=== PATIENT | female | born 1975 | race African-American/Black ===

== ENCOUNTER 2022-05-19 14:07 | Inpatient (IN) | payer MEDICAID, OTHER ==
[~2022-05-19] VITALS: Ht 185.4 cm; Wt 102.1 kg
[2022-05-19] MEDS ORDERED: MAGNESIUM/ALUMINUM HYDROXIDE/SIMETHICONE 30ML UDC PO STA (16:21)
[2022-05-19] MEDS ORDERED: DICYCLOMINE 10 MG/5 ML ORAL SYR PO STA (16:21)
[2022-05-19] MEDS ORDERED: VISCOUS LIDOCAINE 2% 15 ML UDC PO STA (16:21)
[2022-05-19] MEDS ORDERED: SODIUM CHLORIDE 0.9% 1,000 ML IV ONE (17:15)
[2022-05-19 17:25] LABS: CLARITY URINE CLOUDY (CLEAR); COLOR URINE YELLOW (YELLOW); KETONES URINE NEGATIVE (NEGATIVE); LEUKOCYTE ESTERASE URINE 3+ (NEGATIVE); NITRITE URINE NEGATIVE (NEGATIVE); OCCULT BLOOD URINE 2+ (NEGATIVE); PROTEIN URINE 1+ (NEGATIVE); UROBILINOGEN URINE 0.2 E.U./dL (0.2-1.0)
[2022-05-19 17:29] LABS: BASOPHILS % 0.5 % (0.0-2.0); EOSINOPHILS % 0.9 % (0.0-5.0); HEMOGLOBIN. 11.7 g/dL (12.0-16.0); MEAN CORPUSCULAR HEMOGLOBIN 30.4 pg (28.0-32.0); MEAN CORPUSCULAR VOLUME 93.4 fL (81.0-99.0); MEAN PLATELET VOLUME 7.9 fl (7.4-10.4); MONOCYTES % 11.3 % (2.0-8.0); NEUTROPHILS % 56.3 % (40.0-76.0); PLATELET 186 x1000/uL (130-400); RED BLOOD CELL COUNT 3.85 mill/uL (4.2-5.4); RED CELL DISTRIBUTION WIDTH 15.1 % (11.6-14.6)
[2022-05-19 17:37] LABS: CHLORIDE 108 mEq/L (98-107)
[2022-05-19 17:43] LABS: *AMPHETAMINES SCREEN URINE NEGATIVE (NEGATIVE); *BARBITURATES SCREEN URINE NEGATIVE (NEGATIVE); *BENZODIAZEPINES SCREEN URINE NEGATIVE (NEGATIVE); *COCAINE SCREEN URINE NEGATIVE (NEGATIVE); CANNABINOID URINE SCREEN PRESUMTIVE POSITIVE (NEGATIVE); METHADONE URINE SCREEN NEGATIVE (NEGATIVE); OPIATES URINE SCREEN NEGATIVE (NEGATIVE); PHENCYCLIDINE URINE SCREEN NEGATIVE (NEGATIVE)
[2022-05-19 17:48] LABS: ETHANOL BLOOD < 10 mg/dL
[2022-05-19 18:05] LABS: HCG SCREEN NEGATIVE
[2022-05-19] MEDS ORDERED: VANCOMYCIN 1G PREMIX 200 ML IV SCH (20:30)
[2022-05-19] MEDS ORDERED: PIPERACILLIN/TAZ 3.375G PREMIX 50 ML IV ONE (20:30)
[2022-05-19] MEDS ORDERED: GADOTERATE MEGLUMINE 5 MMOL/10 ML VIAL IV ONE (21:47)
[2022-05-19] MEDS ORDERED: ONDANSETRON HCL 4MG/2ML INJ IV STA (22:02)
[2022-05-19] MEDS ORDERED: MORPHINE SULFATE 4 MG/ML CPJ (NOT FOR IM USE) IV STA (22:02)
[2022-05-20 04:00] VITALS: BP 158/98
[2022-05-20] MEDS ORDERED: ACETAMINOPHEN 650MG/20.3ML UDC PO PRN (05:30)
[2022-05-20] MEDS ORDERED: ONDANSETRON HCL 4MG/2ML INJ IV PRN (05:30)
[2022-05-20 08:00] VITALS: BP 142/92
[2022-05-20] MEDS: HYDROCODONE/ACETAMINOPHEN 10/325MG TABLET PO PRN ×3 (08:33→23:34)
[2022-05-20] MEDS: AMLODIPINE 10MG TABLET PO SCH (08:34)
[2022-05-20] MEDS ORDERED: PANTOPRAZOLE 40MG DR TABLET PO SCH (09:00)
[2022-05-20] MEDS ORDERED: ENOXAPARIN 40MG/0.4ML SYR SUBCUT SCH (09:00)
[2022-05-20] MEDS ORDERED: POTASSIUM CHLORIDE 20MEQ TABLET SR PO NR (10:15)
[2022-05-20] MEDS ORDERED: CEFTRIAXONE 1 G PREMIX 50 ML IV SCH (10:15)
[2022-05-20] MEDS ORDERED: NALOXONE HCL 0.4MG/ML VIAL IV PRN (10:30)
[2022-05-20 12:00] VITALS: BP 134/84
[2022-05-20 13:13] LABS: INR 1.3; PROTHROMBIN TIME 14.1 sec (9.6-11.0)
[2022-05-20] MEDS: CEFTRIAXONE 1,000 MG in DEXTROSE 5% WATER 50 ML IV SCH (15:48)
[2022-05-20 16:00] VITALS: BP 128/89
[2022-05-20] MEDS: DEXT 5%/LACTATED RINGERS 1,000 ML IV SCH (19:00)
[2022-05-20 20:00] VITALS: BP 147/93
[2022-05-20] MEDS: METRONIDAZOLE 500 MG PREMIX 100 ML IV SCH (21:37)
[2022-05-21] VITALS (29 sets, daily range): BP systolic 122–165; BP diastolic 51–97
[2022-05-21] MEDS: DEXT 5%/LACTATED RINGERS 1,000 ML IV SCH ×3 (05:23→21:20)
[2022-05-21] MEDS: METRONIDAZOLE 500 MG PREMIX 100 ML IV SCH ×2 (05:23→22:00)
[2022-05-21 08:01] LABS: HEMATOCRIT. 32.5 % (36.0-48.0); HEMOGLOBIN. 10.7 g/dL (12.0-16.0); MEAN CORPUSCULAR HEMOGLOBIN 29.8 pg (28.0-32.0); MEAN CORPUSCULAR VOLUME 90.4 fL (81.0-99.0); MEAN PLATELET VOLUME 8.4 fl (7.4-10.4); PLATELET 139 x1000/uL (130-400)
[2022-05-21] MEDS ORDERED: PROPOFOL 200MG/20ML VIAL IV ONE (09:42)
[2022-05-21] MEDS ORDERED: CEFAZOLIN SODIUM 1000MG/VIAL ONE (09:42)
[2022-05-21] MEDS ORDERED: MIDAZOLAM HCL 2 MG/2 ML VIAL ONE (09:44)
[2022-05-21] MEDS ORDERED: LIDOCAINE HCL 1%/EPI 1:200,000 30 ML VIAL ONE (09:45)
[2022-05-21] MEDS ORDERED: THROMBIN (BOVINE) 5000 UNITS/VIAL TOP ONE (09:45)
[2022-05-21] MEDS ORDERED: GENTAMICIN SULF 40MG/ML 2ML VIAL ONE (09:45)
[2022-05-21] MEDS ORDERED: FENTANYL CITRATE/PF 50MCG/ML 2ML VIAL ONE (09:47)
[2022-05-21 10:22] LABS: CHLORIDE 115 mEq/L (98-107)
[2022-05-21] MEDS ORDERED: KETOROLAC 30MG/ML VIAL ONE ×3 (12:09→12:24)
[2022-05-21] MEDS ORDERED: FUROSEMIDE 40MG/4ML VIAL ONE (12:39)
[2022-05-21] MEDS ORDERED: FENTANYL CITRATE/PF 50MCG/ML 2ML VIAL IV PRN (13:30)
[2022-05-21] MEDS: HYDROMORPHONE HCL/PF 2MG/ML CPJ IV PRN ×3 (13:48→15:10)
[2022-05-21] MEDS ORDERED: CEFAZOLIN SODIUM 1000MG/VIAL IV SCH (14:00)
[2022-05-21] MEDS: NICARDIPINE 100 MG in SODIUM CHLORIDE 0.9% 60 ML IV PRN ×2 (14:31→21:54)
[2022-05-21] MEDS: MORPHINE SULFATE 4 MG/ML CPJ (NOT FOR IM USE) IV PRN ×4 (16:10→23:49)
[2022-05-21 16:21] LABS: PLATELET ESTIMATE NORMAL
[2022-05-21] MEDS: DIPHENHYDRAMINE 25MG CAPSULE PO PRN (16:58)
[2022-05-21] MEDS: DEXAMETHASONE 4MG/ML 1ML VIAL IV SCH ×2 (17:13→23:49)
[2022-05-21] MEDS: AMLODIPINE 10MG TABLET PO SCH (18:09)
[2022-05-21] MEDS ORDERED: MORPHINE SULFATE 2 MG/ML CPJ (NOT FOR IM USE) IV NR (19:00)
[2022-05-21] MEDS: CEFAZOLIN 1000MG PREMIX 50 ML IV SCH (21:19)
[2022-05-22] VITALS (75 sets, daily range): BP systolic 58–163; BP diastolic 48–90
[2022-05-22] MEDS: DEXT 5%/LACTATED RINGERS 1,000 ML IV SCH ×2 (01:20→08:55)
[2022-05-22 04:18] LABS: BASOPHILS % 0.1 % (0.0-2.0); HEMATOCRIT. 28.5 % (36.0-48.0); HEMOGLOBIN. 9.4 g/dL (12.0-16.0); LYMPHOCYTES % 27.5 % (20.0-50.0); MEAN CORPUSCULAR HEMOGLOBIN 29.9 pg (28.0-32.0); MEAN CORPUSCULAR VOLUME 90.4 fL (81.0-99.0); MEAN PLATELET VOLUME 8.9 fl (7.4-10.4); MONOCYTES % 2.5 % (2.0-8.0); NEUTROPHILS % 69.9 % (40.0-76.0); PLATELET 177 x1000/uL (130-400); RED BLOOD CELL COUNT 3.15 mill/uL (4.2-5.4); RED CELL DISTRIBUTION WIDTH 14.7 % (11.6-14.6)
[2022-05-22] MEDS: MORPHINE SULFATE 4 MG/ML CPJ (NOT FOR IM USE) IV PRN ×7 (04:21→20:25)
[2022-05-22 04:27] LABS: CHLORIDE 110 mEq/L (98-107)
[2022-05-22] MEDS: CEFAZOLIN 1000MG PREMIX 50 ML IV SCH ×2 (05:01→14:08)
[2022-05-22] MEDS: NICARDIPINE 100 MG in SODIUM CHLORIDE 0.9% 60 ML IV PRN (05:01)
[2022-05-22] MEDS: DEXAMETHASONE 4MG/ML 1ML VIAL IV SCH ×3 (05:01→17:11)
[2022-05-22] MEDS: METRONIDAZOLE 500 MG PREMIX 100 ML IV SCH ×3 (05:53→23:01)
[2022-05-22] MEDS: DIPHENHYDRAMINE 25MG CAPSULE PO PRN (07:54)
[2022-05-22] MEDS: AMLODIPINE 10MG TABLET PO SCH (08:05)
[2022-05-22] MEDS: FAMOTIDINE 20MG/2ML VIAL IV SCH (08:05)
[2022-05-22] MEDS ORDERED: POTASSIUM CHLORIDE 20MEQ TABLET SR PO NR (08:15)
[2022-05-22] MEDS: CEFTRIAXONE 1,000 MG in DEXTROSE 5% WATER 50 ML IV SCH (12:32)
[2022-05-22] MEDS: HYDROCODONE/ACETAMINOPHEN 10/325MG TABLET PO PRN (23:19)
[2022-05-23] VITALS (7 sets, daily range): BP systolic 128–142; BP diastolic 68–90
[2022-05-23] MEDS: CEFAZOLIN 1000MG PREMIX 50 ML IV SCH ×4 (00:30→21:44)
[2022-05-23] MEDS: MORPHINE SULFATE 4 MG/ML CPJ (NOT FOR IM USE) IV PRN ×4 (05:28→16:31)
[2022-05-23] MEDS: METRONIDAZOLE 500 MG PREMIX 100 ML IV SCH ×3 (06:49→21:36)
[2022-05-23] MEDS: FAMOTIDINE 20MG/2ML VIAL IV SCH (08:27)
[2022-05-23] MEDS: AMLODIPINE 10MG TABLET PO SCH (08:27)
[2022-05-23] MEDS: HYDROCODONE/ACETAMINOPHEN 10/325MG TABLET PO PRN ×3 (10:26→21:47)
[2022-05-23] MEDS: CEFTRIAXONE 1,000 MG in DEXTROSE 5% WATER 50 ML IV SCH (12:32)
[2022-05-24] VITALS: BP 127/74
[2022-05-24] MEDS: MORPHINE SULFATE 4 MG/ML CPJ (NOT FOR IM USE) IV PRN ×2 (02:41→08:47)
[2022-05-24 04:00] VITALS: BP 134/74
[2022-05-24] MEDS: METRONIDAZOLE 500 MG PREMIX 100 ML IV SCH (05:39)
[2022-05-24] MEDS: HYDROCODONE/ACETAMINOPHEN 10/325MG TABLET PO PRN ×4 (06:34→23:27)
[2022-05-24 08:00] VITALS: BP 138/88
[2022-05-24] MEDS: FAMOTIDINE 20MG TABLET PO SCH ×2 (08:45→21:06)
[2022-05-24] MEDS: AMLODIPINE 10MG TABLET PO SCH (08:45)
[2022-05-24 12:00] VITALS: BP 125/77
[2022-05-24] MEDS: CEFTRIAXONE 1,000 MG in DEXTROSE 5% WATER 50 ML IV SCH (12:21)
[2022-05-24] MEDS: METRONIDAZOLE 500MG TABLET PO SCH ×2 (17:52→21:06)
[2022-05-24 20:00] VITALS: BP 127/86
[2022-05-24 23:31] VITALS: BP 136/89
[2022-05-25 04:00] VITALS: BP 127/88
[2022-05-25] MEDS: METRONIDAZOLE 500MG TABLET PO SCH ×3 (05:43→21:07)
[2022-05-25] MEDS: MORPHINE SULFATE 4 MG/ML CPJ (NOT FOR IM USE) IV PRN (05:50)
[2022-05-25] MEDS ORDERED: LIDOCAINE HCL/PF 1% 10 MG/ML 5ML VIAL ONE (07:56)
[2022-05-25 08:00] VITALS: BP 127/73
[2022-05-25] MEDS: AMLODIPINE 10MG TABLET PO SCH (09:25)
[2022-05-25] MEDS: FAMOTIDINE 20MG TABLET PO SCH ×2 (09:25→21:06)
[2022-05-25 12:00] VITALS: BP 122/88
[2022-05-25] MEDS: HYDROCODONE/ACETAMINOPHEN 5/325MG TABLET PO PRN ×2 (12:13→21:06)
[2022-05-25] MEDS: CEFTRIAXONE 1,000 MG in DEXTROSE 5% WATER 50 ML IV SCH (12:14)
[2022-05-25] MEDS ORDERED: NALOXONE HCL 0.4MG/ML VIAL IV PRN (15:45)
[2022-05-25 16:00] VITALS: BP 125/83
[2022-05-25 20:00] VITALS: BP_SYST 134; BP_SYST 152; BP_DIAS 78; BP_DIAS 90
[2022-05-25 22:53] VITALS: BP 134/78
[2022-05-25] MEDS ORDERED: CEFTRIAXONE 2 G PREMIX 50 ML IV SCH (23:15)
[2022-05-26] VITALS (8 sets, daily range): BP systolic 78–140; BP diastolic 70–85
[2022-05-26] MEDS: CEFTRIAXONE 2 G in DEXTROSE 5% WATER 50 ML IV SCH (04:09)
[2022-05-26] MEDS: HYDROCODONE/ACETAMINOPHEN 5/325MG TABLET PO PRN ×5 (04:16→22:03)
[2022-05-26] MEDS: METRONIDAZOLE 500MG TABLET PO SCH ×3 (05:28→21:14)
[2022-05-26] MEDS ORDERED: HYDR-4001 MT (08:12)
[2022-05-26] MEDS: FAMOTIDINE 20MG TABLET PO SCH ×2 (08:36→21:14)
[2022-05-26] MEDS: AMLODIPINE 10MG TABLET PO SCH (08:36)
[2022-05-26 11:25] LABS: CHLORIDE 108 mEq/L (98-107)
[2022-05-26 15:26] LABS: BASOPHILS % 0.3 % (0.0-2.0); EOSINOPHILS % 1.6 % (0.0-5.0); LYMPHOCYTES % 29.2 % (20.0-50.0); MEAN CORPUSCULAR HEMOGLOBIN 29.4 pg (28.0-32.0); MEAN CORPUSCULAR VOLUME 98.9 fL (81.0-99.0); MEAN PLATELET VOLUME 7.2 fl (7.4-10.4); MONOCYTES % 6.4 % (2.0-8.0); NEUTROPHILS % 62.5 % (40.0-76.0); PLATELET 269 x1000/uL (130-400); RED BLOOD CELL COUNT 2.03 mill/uL (4.2-5.4); RED CELL DISTRIBUTION WIDTH 15.8 % (11.6-14.6)
[2022-05-26 15:50] LABS: HEMATOCRIT. 20.1 % (36.0-48.0)
[2022-05-26] MEDS: DIPHENHYDRAMINE 25MG CAPSULE PO PRN (21:14)
[2022-05-27] VITALS (14 sets, daily range): BP systolic 125–140; BP diastolic 74–98
[2022-05-27] MEDS: CEFTRIAXONE 2 G in DEXTROSE 5% WATER 50 ML IV SCH (01:16)
[2022-05-27] MEDS: HYDROCODONE/ACETAMINOPHEN 5/325MG TABLET PO PRN ×4 (03:07→17:46)
[2022-05-27] MEDS: METRONIDAZOLE 500MG TABLET PO SCH ×3 (05:43→21:12)
[2022-05-27] MEDS: AMLODIPINE 10MG TABLET PO SCH (08:40)
[2022-05-27] MEDS: FAMOTIDINE 20MG TABLET PO SCH (08:40)
[2022-05-27 12:25] LABS: BASOPHILS % 0.3 % (0.0-2.0); EOSINOPHILS % 1.6 % (0.0-5.0); HEMATOCRIT. 21.4 % (36.0-48.0); HEMOGLOBIN. 7.2 g/dL (12.0-16.0); LYMPHOCYTES % 24.1 % (20.0-50.0); MEAN CORPUSCULAR HEMOGLOBIN 30.8 pg (28.0-32.0); MEAN CORPUSCULAR VOLUME 91.8 fL (81.0-99.0); MEAN PLATELET VOLUME 7.5 fl (7.4-10.4); MONOCYTES % 6.8 % (2.0-8.0); NEUTROPHILS % 67.2 % (40.0-76.0); PLATELET 260 x1000/uL (130-400); RED BLOOD CELL COUNT 2.34 mill/uL (4.2-5.4); RED CELL DISTRIBUTION WIDTH 14.9 % (11.6-14.6)
[2022-05-27 12:47] LABS: CHLORIDE 105 mEq/L (98-107)
[2022-05-27] MEDS: DIPHENHYDRAMINE 25MG CAPSULE PO PRN ×2 (13:02→22:19)
[2022-05-27] MEDS ORDERED: PANTOPRAZOLE SODIUM 40 MG/VIAL IV SCH (17:00)
[2022-05-27] MEDS: PANTOPRAZOLE SODIUM 40 MG/VIAL IV SCH (21:12)
[2022-05-27] MEDS: OCTREOTIDE 1,000 MCG in SODIUM CHLORIDE 0.9% 98 ML IV SCH (22:21)
[2022-05-28] MEDS: HYDROCODONE/ACETAMINOPHEN 5/325MG TABLET PO PRN ×5 (00:19→23:10)
[2022-05-28] MEDS: CEFTRIAXONE 2 G in DEXTROSE 5% WATER 50 ML IV SCH ×2 (00:20→23:30)
[2022-05-28 04:00] VITALS: BP 131/79
[2022-05-28 04:26] LABS: CHLORIDE 105 mEq/L (98-107)
[2022-05-28 04:32] LABS: INR 1.2; PROTHROMBIN TIME 12.4 sec (9.6-11.0)
[2022-05-28 04:48] LABS: BASOPHILS % 0.4 % (0.0-2.0); EOSINOPHILS % 1.4 % (0.0-5.0); HEMATOCRIT. 23.2 % (36.0-48.0); HEMOGLOBIN. 7.7 g/dL (12.0-16.0); LYMPHOCYTES % 26.7 % (20.0-50.0); MEAN CORPUSCULAR HEMOGLOBIN 30.1 pg (28.0-32.0); MEAN CORPUSCULAR VOLUME 90.5 fL (81.0-99.0); MEAN PLATELET VOLUME 7.7 fl (7.4-10.4); MONOCYTES % 8.8 % (2.0-8.0); NEUTROPHILS % 62.7 % (40.0-76.0); PLATELET 275 x1000/uL (130-400); RED BLOOD CELL COUNT 2.56 mill/uL (4.2-5.4); RED CELL DISTRIBUTION WIDTH 15.9 % (11.6-14.6)
[2022-05-28] MEDS: DIPHENHYDRAMINE 25MG CAPSULE PO PRN ×3 (05:13→18:58)
[2022-05-28] MEDS: METRONIDAZOLE 500MG TABLET PO SCH ×3 (07:14→22:05)
[2022-05-28] MEDS: AMLODIPINE 10MG TABLET PO SCH (07:49)
[2022-05-28] MEDS: PANTOPRAZOLE SODIUM 40 MG/VIAL IV SCH ×2 (07:50→22:08)
[2022-05-28 08:00] VITALS: BP 131/88
[2022-05-28] MEDS ORDERED: MIDAZOLAM HCL 2 MG/2 ML VIAL ONE ×2 (11:27)
[2022-05-28] MEDS ORDERED: LIDOCAINE HCL 1% 10 MG/ML 10ML VIAL ONE (11:27)
[2022-05-28] MEDS ORDERED: PROPOFOL 200MG/20ML VIAL IV ONE ×2 (11:27→12:05)
[2022-05-28] MEDS ORDERED: EPHEDRINE SULFATE 50MG/ML VIAL ONE (11:28)
[2022-05-28] MEDS: OCTREOTIDE 1,000 MCG in SODIUM CHLORIDE 0.9% 98 ML IV SCH (15:04)
[2022-05-28 16:00] VITALS: BP 154/90
[2022-05-28] MEDS: SUCRALFATE 1 G/10 ML UDC PO SCH ×2 (17:00→22:05)
[2022-05-28 20:00] VITALS: BP 134/89
[2022-05-29] VITALS: BP 142/91
[2022-05-29] MEDS: DIPHENHYDRAMINE 25MG CAPSULE PO PRN ×3 (01:08→15:01)
[2022-05-29] MEDS: HYDROCODONE/ACETAMINOPHEN 5/325MG TABLET PO PRN ×5 (03:21→21:01)
[2022-05-29 04:00] VITALS: BP 140/90
[2022-05-29] MEDS: METRONIDAZOLE 500MG TABLET PO SCH ×3 (06:10→20:54)
[2022-05-29 08:00] VITALS: BP 143/85
[2022-05-29] MEDS: AMLODIPINE 10MG TABLET PO SCH (08:34)
[2022-05-29] MEDS: SUCRALFATE 1 G/10 ML UDC PO SCH ×4 (08:34→20:55)
[2022-05-29] MEDS: PANTOPRAZOLE SODIUM 40 MG/VIAL IV SCH ×2 (08:44→20:54)
[2022-05-29 12:00] VITALS: BP 137/80
[2022-05-29 16:00] VITALS: BP 126/79
[2022-05-29 17:01] LABS: FERRITIN 45 ng/mL (10-291)
[2022-05-29 17:12] LABS: HEPATITIS B SURFACE ANTIGEN NEGATIVE
[2022-05-29 20:00] VITALS: BP 122/71
[2022-05-29 21:43] LABS: VITAMIN B12 SERUM 1626 pg/mL (211-911)
[2022-05-29] MEDS: CEFTRIAXONE 2 G in DEXTROSE 5% WATER 50 ML IV SCH (23:30)
[2022-05-30] VITALS: BP 133/72
[2022-05-30] MEDS: HYDROCODONE/ACETAMINOPHEN 5/325MG TABLET PO PRN ×5 (01:47→23:15)
[2022-05-30 04:00] VITALS: BP 129/84
[2022-05-30] MEDS: METRONIDAZOLE 500MG TABLET PO SCH ×3 (05:46→21:50)
[2022-05-30 08:00] VITALS: BP 128/86
[2022-05-30] MEDS: SUCRALFATE 1 G/10 ML UDC PO SCH ×4 (08:58→21:50)
[2022-05-30] MEDS: PANTOPRAZOLE SODIUM 40 MG/VIAL IV SCH ×2 (08:58→21:50)
[2022-05-30] MEDS: AMLODIPINE 10MG TABLET PO SCH (09:01)
[2022-05-30 12:00] VITALS: BP 121/66
[2022-05-30 16:00] VITALS: BP 123/62
[2022-05-30 16:27] LABS: MEAN CORPUSCULAR HEMOGLOBIN 30.5 pg (28.0-32.0); MEAN CORPUSCULAR VOLUME 91.8 fL (81.0-99.0); MEAN PLATELET VOLUME 8.1 fl (7.4-10.4); PLATELET 269 x1000/uL (130-400); RED BLOOD CELL COUNT 2.61 mill/uL (4.2-5.4); RED CELL DISTRIBUTION WIDTH 16.9 % (11.6-14.6)
[2022-05-30 16:45] LABS: CHLORIDE 101 mEq/L (98-107)
[2022-05-30 18:27] LABS: PLATELET ESTIMATE NORMAL
[2022-05-30 20:00] VITALS: BP 130/67
[2022-05-30] MEDS: CEFTRIAXONE 2 G in DEXTROSE 5% WATER 50 ML IV SCH (23:21)
[2022-05-31 02:42] VITALS: BP 136/82
[2022-05-31 04:00] VITALS: BP 127/69
[2022-05-31 08:00] VITALS: BP 131/80
[2022-05-31] MEDS: AMLODIPINE 10MG TABLET PO SCH ×2 (08:46→08:48)
[2022-05-31] MEDS: HYDROCODONE/ACETAMINOPHEN 5/325MG TABLET PO PRN ×4 (08:48→23:59)
[2022-05-31] MEDS: SUCRALFATE 1 G/10 ML UDC PO SCH ×4 (08:53→22:05)
[2022-05-31] MEDS: PANTOPRAZOLE SODIUM 40 MG/VIAL IV SCH ×2 (09:33→22:05)
[2022-05-31] MEDS ORDERED: OMEP40CA20 MT (11:02)
[2022-05-31 12:00] VITALS: BP 124/85
[2022-05-31 16:00] VITALS: BP 115/74
[2022-05-31 20:00] VITALS: BP 120/76
[2022-05-31] MEDS: CEFTRIAXONE 2 G in DEXTROSE 5% WATER 50 ML IV SCH (23:58)
[2022-06-01] VITALS: BP 126/72
[2022-06-01 04:00] VITALS: BP 130/76
[2022-06-01] MEDS: HYDROCODONE/ACETAMINOPHEN 5/325MG TABLET PO PRN ×5 (05:05→23:57)
[2022-06-01 07:22] LABS: HEMATOCRIT. 22.6 % (36.0-48.0); HEMOGLOBIN. 7.5 g/dL (12.0-16.0); MEAN CORPUSCULAR HEMOGLOBIN 30.3 pg (28.0-32.0); MEAN CORPUSCULAR VOLUME 90.9 fL (81.0-99.0); MEAN PLATELET VOLUME 7.8 fl (7.4-10.4); PLATELET 225 x1000/uL (130-400); RED BLOOD CELL COUNT 2.49 mill/uL (4.2-5.4); RED CELL DISTRIBUTION WIDTH 16.9 % (11.6-14.6)
[2022-06-01 08:00] VITALS: BP 114/57
[2022-06-01 08:11] LABS: CHLORIDE 103 mEq/L (98-107)
[2022-06-01] MEDS: AMLODIPINE 10MG TABLET PO SCH (09:00)
[2022-06-01] MEDS: SUCRALFATE 1 G/10 ML UDC PO SCH ×4 (09:22→21:51)
[2022-06-01] MEDS: PANTOPRAZOLE SODIUM 40 MG/VIAL IV SCH ×2 (09:23→21:50)
[2022-06-01 12:03] VITALS: BP 148/96
[2022-06-01 16:30] VITALS: BP 120/70
[2022-06-01 20:04] VITALS: BP 118/63
[2022-06-01] MEDS: CEFTRIAXONE 2 G in DEXTROSE 5% WATER 50 ML IV SCH (23:56)
[2022-06-02] VITALS: BP 129/68
[2022-06-02 04:17] VITALS: BP 102/59
[2022-06-02] MEDS: HYDROCODONE/ACETAMINOPHEN 5/325MG TABLET PO PRN ×4 (06:35→20:39)
[2022-06-02 07:43] LABS: BASOPHILS % 0.9 % (0.0-2.0); EOSINOPHILS % 1.7 % (0.0-5.0); HEMATOCRIT. 25.5 % (36.0-48.0); HEMOGLOBIN. 8.6 g/dL (12.0-16.0); LYMPHOCYTES % 44.9 % (20.0-50.0); MEAN CORPUSCULAR HEMOGLOBIN 30.7 pg (28.0-32.0); MEAN CORPUSCULAR VOLUME 91.2 fL (81.0-99.0); MEAN PLATELET VOLUME 7.9 fl (7.4-10.4); MONOCYTES % 14.3 % (2.0-8.0); NEUTROPHILS % 38.2 % (40.0-76.0); PLATELET 249 x1000/uL (130-400); RED CELL DISTRIBUTION WIDTH 16.6 % (11.6-14.6)
[2022-06-02 08:00] VITALS: BP 140/87
[2022-06-02] MEDS: SUCRALFATE 1 G/10 ML UDC PO SCH ×4 (08:55→20:33)
[2022-06-02] MEDS: AMLODIPINE 10MG TABLET PO SCH (08:56)
[2022-06-02] MEDS: PANTOPRAZOLE SODIUM 40 MG/VIAL IV SCH ×2 (08:56→20:34)
[2022-06-02 11:03] LABS: PLATELET ESTIMATE NORMAL
[2022-06-02 12:00] VITALS: BP 146/82
[2022-06-02 16:00] VITALS: BP 138/80
[2022-06-02 20:06] VITALS: BP 126/75
[2022-06-02] MEDS: CEFTRIAXONE 2 G in DEXTROSE 5% WATER 50 ML IV SCH (23:02)
[2022-06-03 00:23] VITALS: BP 115/64
[2022-06-03 04:00] VITALS: BP 122/43
[2022-06-03 04:11] VITALS: BP 107/65
[2022-06-03] MEDS: HYDROCODONE/ACETAMINOPHEN 5/325MG TABLET PO PRN ×3 (04:11→13:07)
[2022-06-03 06:56] LABS: HEMATOCRIT. 23.2 % (36.0-48.0); HEMOGLOBIN. 7.7 g/dL (12.0-16.0); MEAN CORPUSCULAR HEMOGLOBIN 30.1 pg (28.0-32.0); MEAN CORPUSCULAR VOLUME 91.2 fL (81.0-99.0); MEAN PLATELET VOLUME 7.4 fl (7.4-10.4); PLATELET 184 x1000/uL (130-400); RED BLOOD CELL COUNT 2.55 mill/uL (4.2-5.4); RED CELL DISTRIBUTION WIDTH 16.6 % (11.6-14.6)
[2022-06-03 08:00] VITALS: BP 145/78
[2022-06-03] MEDS: PANTOPRAZOLE SODIUM 40 MG/VIAL IV SCH (08:47)
[2022-06-03] MEDS: SUCRALFATE 1 G/10 ML UDC PO SCH ×2 (08:47→13:05)
[2022-06-03] MEDS: AMLODIPINE 10MG TABLET PO SCH (08:47)
[2022-06-03 09:48] LABS: CHLORIDE 103 mEq/L (98-107)
[2022-06-03] MEDS ORDERED: AMLO10TA80 PO (11:08)
[2022-06-03 12:00] VITALS: BP 142/85
[2022-06-03 13:17] LABS: PLATELET ESTIMATE NORMAL
[2022-06-03 14:35] VITALS: BP 140/80
[2022-06-03 16:24] LABS: CHLORIDE 105 mEq/L (98-107)
== END 2022-06-03 15:27 | disposition home health service (06) | DRG 304 ==
LOC: ER 14:50 → EDBEDREQ 20:25 → ENRESERV 05-20 02:43 → 6EST 05-20 03:48 → MICUSO 05-21 14:53 → 4WST 05-22 21:42
PROVIDERS: ADMIT Internal Medicine; ATTEND Internal Medicine
PROC: 0RGA071 Fusion of Thoracolumbar Vertebral Joint with Autologous Tissue Substitute, Posterior Approach, Posterior Column, Open Approach (ICD-10-PCS; principal; 2022-05-21)
PROC: 0SG0071 Fusion of Lumbar Vertebral Joint with Autologous Tissue Substitute, Posterior Approach, Posterior Column, Open Approach (ICD-10-PCS; 2022-05-21)
PROC: 00NX0ZZ Release Thoracic Spinal Cord, Open Approach (ICD-10-PCS; 2022-05-21)
PROC: 0RBB0ZZ Excision of Thoracolumbar Vertebral Disc, Open Approach (ICD-10-PCS; 2022-05-21)
PROC: 009U0ZX Drainage of Spinal Canal, Open Approach, Diagnostic (ICD-10-PCS; 2022-05-21)
PROC: 0SB20ZZ Excision of Lumbar Vertebral Disc, Open Approach (ICD-10-PCS; 2022-05-21)
PROC: 02HV33Z Insertion of Infusion Device into Superior Vena Cava, Percutaneous Approach (ICD-10-PCS; 2022-05-25)
PROC: B5181ZA Fluoroscopy of Superior Vena Cava using Low Osmolar Contrast, Guidance (ICD-10-PCS; 2022-05-25)
PROC: B548ZZA Ultrasonography of Superior Vena Cava, Guidance (ICD-10-PCS; 2022-05-25)
PROC: 30233N1 Transfusion of Nonautologous Red Blood Cells into Peripheral Vein, Percutaneous Approach (ICD-10-PCS; 2022-05-26)
PROC: 0DB78ZX Excision of Stomach, Pylorus, Via Natural or Artificial Opening Endoscopic, Diagnostic (ICD-10-PCS; 2022-05-28)
DX: M46.24 Osteomyelitis of vertebra, thoracic region (principal); A41.51 Sepsis due to Escherichia coli [E. coli]; G06.1 Intraspinal abscess and granuloma; K25.4 Chronic or unspecified gastric ulcer with hemorrhage; N17.9 Acute kidney failure, unspecified; E87.1 Hypo-osmolality and hyponatremia; G95.29 Other cord compression; G82.20 Paraplegia, unspecified; K29.61 Other gastritis with bleeding; E87.6 Hypokalemia; M46.25 Osteomyelitis of vertebra, thoracolumbar region; K52.9 Noninfective gastroenteritis and colitis, unspecified; N39.0 Urinary tract infection, site not specified; Z20.822 Contact with and (suspected) exposure to COVID-19; M46.45 Discitis, unspecified, thoracolumbar region; I10 Essential (primary) hypertension; R74.01 Elevation of levels of liver transaminase levels; K57.90 Diverticulosis of intestine, part unspecified, without perforation or abscess without bleeding; K75.9 Inflammatory liver disease, unspecified; D64.9 Anemia, unspecified; N89.8 Other specified noninflammatory disorders of vagina; K70.9 Alcoholic liver disease, unspecified; G89.29 Other chronic pain; M46.49 Discitis, unspecified, multiple sites in spine; F17.210 Nicotine dependence, cigarettes, uncomplicated; F12.90 Cannabis use, unspecified, uncomplicated; F10.10 Alcohol abuse, uncomplicated; Z79.1 Long term (current) use of non-steroidal anti-inflammatories (NSAID); Z86.61 Personal history of infections of the central nervous system; Z87.11 Personal history of peptic ulcer disease; Z87.440 Personal history of urinary (tract) infections; Z98.891 History of uterine scar from previous surgery
CPT/HCPCS: 36415; 36573; 72080; 72148; 72157; 72158; 74176; 76000; 76700; 80048; 80053; 80076; 80305; 80320; 81003; 82607; 82728; 82746; 83540; 83550; 84703; 85018; 85025; 85044; 85651; 86705; 86709; 86803; 86850; 86900; 86920; 87070; 87075; 87077; 87186; 87340; 87426; 88305; 93976; 95925; 95926; 95928; 95929; 97110; 97116; 97162; 97166; 97530; 97535; 99291; A9577; C1725; C1893; C9113; J0690; J0696; J1100; J1170; J1580; J1650; J1885; J1940; J2250; J2270; J2354; J2405; J2543; J2704; J3010; J3370; J3490; J7030; J7050; J7060; J7121; P9016; Q0163; C1713; C1762; G0480

== ENCOUNTER 2022-07-13 21:15 | Emergency (ER) | payer MEDICAID, OTHER ==
[~2022-07-13] VITALS: Ht 185.4 cm; Wt 89.1 kg
[~2022-07-13 21:15] MED LIST: AMLO10TA80 PO; HYDR-4001 MT; OMEP40CA20 MT
[2022-07-13 21:59] VITALS: BP 134/87
[2022-07-13 23:36] LABS: CHLORIDE 109 mEq/L (98-107)
[2022-07-13 23:39] LABS: HEMATOCRIT. 32.2 % (36.0-48.0); HEMOGLOBIN. 10.7 g/dL (12.0-16.0); MEAN CORPUSCULAR HEMOGLOBIN 30.3 pg (28.0-32.0); MEAN CORPUSCULAR VOLUME 91.2 fL (81.0-99.0); MEAN PLATELET VOLUME 7.7 fl (7.4-10.4); PLATELET 211 x1000/uL (130-400); RED BLOOD CELL COUNT 3.53 mill/uL (4.2-5.4)
[2022-07-14 03:58] LABS: PLATELET ESTIMATE NORMAL
== END 2022-07-14 03:48 | disposition left against medical advice (07) ==
LOC: ER 21:15
DX: Z53.21 Procedure and treatment not carried out due to patient leaving prior to being seen by health care provider (principal)
CPT/HCPCS: 36415; 80053; 85025; 93005